=== PATIENT | female | born 1965 | race Two or more races ===

== ENCOUNTER 2018-05-28 21:52 | Emergency (ER) | payer BC ==
[~2018-05-28] VITALS: Ht 167.6 cm; Wt 63.0 kg
[2018-05-28] MEDS ORDERED: NAPROSYN500 MG PO (23:07)
[2018-05-28 23:22] VITALS: BP 129/88
== END 2018-05-28 23:26 | disposition home or self-care (01) ==
LOC: EME 21:52 → EXP 21:52
DX: S91.012A Laceration without foreign body, left ankle, initial encounter (principal); W22.8XXA Striking against or struck by other objects, initial encounter; Z23 Encounter for immunization
CPT/HCPCS: 99281; 99283